=== PATIENT | female | born 1985 | race African-American/Black ===

== ENCOUNTER 2020-07-30 04:23 | Observation (INO) | payer BC ==
[~2020-07-30] VITALS: Ht 170.2 cm; Wt 124.3 kg
[2020-07-30] MEDS ORDERED: PNV1TABL76 PO (05:11)
[2020-07-30] MEDS ORDERED: ASPI-1497 PO (05:11)
[2020-07-30] MEDS ORDERED: FOLI-43 PO (05:11)
[2020-07-30] MEDS ORDERED: PYRI100T10 PO (05:11)
[2020-07-30 06:25] LABS: CLARITY URINE CLEAR (CLEAR); COLOR URINE YELLOW (YELLOW); KETONES URINE NEGATIVE (NEGATIVE); LEUKOCYTE ESTERASE URINE NEGATIVE (NEGATIVE); NITRITE URINE NEGATIVE (NEGATIVE); OCCULT BLOOD URINE NEGATIVE (NEGATIVE); PROTEIN URINE NEGATIVE (NEGATIVE); SPECIFIC GRAVITY URINE 1.018 (1.005-1.030); UROBILINOGEN URINE 0.2 E.U./dL (0.2-1.0)
[2020-07-30 06:28] LABS: BASOPHILS % 0.3 % (0.0-2.0); EOSINOPHILS % 1.3 % (0.0-5.0); HEMATOCRIT. 33.3 % (36.0-48.0); LYMPHOCYTES % 39.5 % (20.0-50.0); MEAN CORPUSCULAR HEMOGLOBIN 29.5 pg (28.0-32.0); MEAN CORPUSCULAR VOLUME 89.2 fL (81.0-99.0); MEAN PLATELET VOLUME 8.2 fl (7.4-10.4); MONOCYTES % 5.3 % (2.0-8.0); NEUTROPHILS % 53.6 % (40.0-76.0); PLATELET 277 x1000/uL (130-400); RED BLOOD CELL COUNT 3.73 mill/uL (4.2-5.4); RED CELL DISTRIBUTION WIDTH 12.9 % (11.6-14.6)
[2020-07-30 06:33] LABS: CHLORIDE 108 mEq/L (98-107)
[2020-07-30 06:36] LABS: D-DIMER 0.76 mg/L FEU (<0.50); PROTHROMBIN TIME 10.5 sec (9.6-11.0)
== END 2020-07-30 07:15 | disposition home or self-care (01) ==
LOC: 8 EST LDRP 04:23
PROVIDERS: ADMIT Specialist; ATTEND Specialist
DX: O13.3 Gestational [pregnancy-induced] hypertension without significant proteinuria, third trimester (principal); Z3A.29 29 weeks gestation of pregnancy
CPT/HCPCS: 36415; 59025; 80053; 81003; 84550; 85025; 85379; 85384; 85610; 85730; G0378; 99281

== ENCOUNTER 2020-09-14 12:17 | Observation (INO) | payer BC ==
[~2020-09-14] VITALS: Ht 172.7 cm; Wt 122.5 kg
[~2020-09-14 12:17] MED LIST: ASPI-1497 PO; FOLI-43 PO; PNV1TABL76 PO; PYRI100T10 PO
[2020-09-14 13:37] LABS: CLARITY URINE CLOUDY (CLEAR); COLOR URINE DARK YELLOW (YELLOW); KETONES URINE TRACE (NEGATIVE); LEUKOCYTE ESTERASE URINE 2+ (NEGATIVE); NITRITE URINE NEGATIVE (NEGATIVE); OCCULT BLOOD URINE NEGATIVE (NEGATIVE); PH URINE 6.5 (4.5-8.0); PROTEIN URINE 1+ (NEGATIVE); SPECIFIC GRAVITY URINE 1.027 (1.005-1.030)
[2020-09-14] MEDS ORDERED: DEXT 5%/LACTATED RINGERS 1,000 ML IV SCH (14:45)
== END 2020-09-14 14:55 | disposition home or self-care (01) ==
LOC: 8 EST LDRP 12:17
PROVIDERS: ADMIT Obstetrics & Gynecology; ATTEND Obstetrics & Gynecology
DX: O26.893 Other specified pregnancy related conditions, third trimester (principal); R10.9 Unspecified abdominal pain; Z3A.35 35 weeks gestation of pregnancy
CPT/HCPCS: 59025; 76805; 76818; 81003; G0378; 99281; A4315

== ENCOUNTER 2020-10-13 18:46 | Observation (INO) | payer BC ==
[~2020-10-13] VITALS: Ht 172.7 cm; Wt 127.0 kg
[2020-10-13] MEDS ORDERED: ACETAMINOPHEN 500MG TABLET PO NR (21:00)
[2020-10-13] MEDS ORDERED: ACETAMINOPHEN 325MG TABLET PO NR (21:00)
[2020-10-13 21:28] LABS: BASOPHILS % 0.2 % (0.0-2.0); HEMATOCRIT. 34.6 % (36.0-48.0); HEMOGLOBIN. 11.4 g/dL (12.0-16.0); LYMPHOCYTES % 32.3 % (20.0-50.0); MEAN CORPUSCULAR HEMOGLOBIN 29.1 pg (28.0-32.0); MEAN CORPUSCULAR VOLUME 88.3 fL (81.0-99.0); MEAN PLATELET VOLUME 8.3 fl (7.4-10.4); MONOCYTES % 6.7 % (2.0-8.0); NEUTROPHILS % 59.8 % (40.0-76.0); PLATELET 258 x1000/uL (130-400); RED BLOOD CELL COUNT 3.92 mill/uL (4.2-5.4); RED CELL DISTRIBUTION WIDTH 14.6 % (11.6-14.6)
[2020-10-13 21:31] LABS: CLARITY URINE CLOUDY (CLEAR); COLOR URINE YELLOW (YELLOW); KETONES URINE TRACE (NEGATIVE); LEUKOCYTE ESTERASE URINE 1+ (NEGATIVE); NITRITE URINE NEGATIVE (NEGATIVE); OCCULT BLOOD URINE NEGATIVE (NEGATIVE); PROTEIN URINE TRACE (NEGATIVE); SPECIFIC GRAVITY URINE 1.024 (1.005-1.030)
[2020-10-13 21:34] LABS: CHLORIDE 106 mEq/L (98-107)
[2020-10-13 21:41] LABS: D-DIMER 1.25 mg/L FEU (<0.50); PROTHROMBIN TIME 10.6 sec (9.6-11.0)
== END 2020-10-13 23:45 | disposition home or self-care (01) ==
LOC: 8 EST LDRP 18:46
PROVIDERS: ADMIT Obstetrics & Gynecology; ATTEND Obstetrics & Gynecology
DX: O26.893 Other specified pregnancy related conditions, third trimester (principal); R10.9 Unspecified abdominal pain; O13.3 Gestational [pregnancy-induced] hypertension without significant proteinuria, third trimester; Z3A.39 39 weeks gestation of pregnancy
CPT/HCPCS: 36415; 59025; 76815; 76818; 80053; 81003; 84550; 85025; 85379; 85384; 85610; 85730; G0378

== ENCOUNTER 2020-10-14 11:48 | Inpatient (IN) | payer BC ==
[~2020-10-14] VITALS: Ht 172.7 cm; Wt 128.8 kg
[~2020-10-14 11:48] MED LIST changes: -ASPI-1497 PO; +CARBOPROST TROMETHAMINE 250 MCG/ML AMPUL IM ONE
[2020-10-14] MEDS ORDERED: ACETAMINOPHEN 500MG TABLET PO NR (12:30)
[2020-10-14] MEDS ORDERED: CARBOPROST TROMETHAMINE 250 MCG/ML AMPUL IM PRN (13:00)
[2020-10-14] MEDS ORDERED: DEXT 5%/LR + PITOCIN 20UNITS/L 1,000 ML IV SCH (13:00)
[2020-10-14] MEDS ORDERED: NALOXONE HCL 0.4 MG/ML 1ML VIAL IM PRN (13:00)
[2020-10-14] MEDS ORDERED: BUTORPHANOL TARTRATE 2 MG/ML VIAL IV PRN (13:00)
[2020-10-14] MEDS ORDERED: LIDOCAINE HCL 1% 20ML VIAL (Pyxis) INJ INFIL NR (13:00)
[2020-10-14] MEDS ORDERED: METHYLERGONOVINE MALEATE 0.2 MG/ML IM PRN (13:00)
[2020-10-14] MEDS ORDERED: MISOPROSTOL 100MCG TABLET VG SCH (13:30)
[2020-10-14 13:32] LABS: CLARITY URINE CLEAR (CLEAR); COLOR URINE YELLOW (YELLOW); KETONES URINE NEGATIVE (NEGATIVE); LEUKOCYTE ESTERASE URINE TRACE (NEGATIVE); NITRITE URINE NEGATIVE (NEGATIVE); OCCULT BLOOD URINE NEGATIVE (NEGATIVE); PROTEIN URINE NEGATIVE (NEGATIVE); SPECIFIC GRAVITY URINE 1.016 (1.005-1.030); UROBILINOGEN URINE 0.2 E.U./dL (0.2-1.0)
[2020-10-14 13:44] LABS: *AMPHETAMINES SCREEN URINE NEGATIVE (NEGATIVE); *BARBITURATES SCREEN URINE NEGATIVE (NEGATIVE); *BENZODIAZEPINES SCREEN URINE NEGATIVE (NEGATIVE); *COCAINE SCREEN URINE NEGATIVE (NEGATIVE)
[2020-10-14 13:45] LABS: CANNABINOID URINE SCREEN NEGATIVE (NEGATIVE); METHADONE URINE SCREEN NEGATIVE (NEGATIVE); OPIATES URINE SCREEN NEGATIVE (NEGATIVE); PHENCYCLIDINE URINE SCREEN NEGATIVE (NEGATIVE)
[2020-10-14] MEDS: LACTATED RINGERS 1,000 ML IV SCH ×2 (14:27→15:06)
[2020-10-14 14:42] LABS: BASOPHILS % 0.3 % (0.0-2.0); EOSINOPHILS % 1.1 % (0.0-5.0); HEMATOCRIT. 36.3 % (36.0-48.0); HEMOGLOBIN. 12.1 g/dL (12.0-16.0); LYMPHOCYTES % 30.7 % (20.0-50.0); MEAN CORPUSCULAR HEMOGLOBIN 29.4 pg (28.0-32.0); MEAN CORPUSCULAR VOLUME 87.7 fL (81.0-99.0); MEAN PLATELET VOLUME 8.3 fl (7.4-10.4); MONOCYTES % 7.5 % (2.0-8.0); NEUTROPHILS % 60.4 % (40.0-76.0); PLATELET 267 x1000/uL (130-400); RED BLOOD CELL COUNT 4.13 mill/uL (4.2-5.4); RED CELL DISTRIBUTION WIDTH 14.6 % (11.6-14.6)
[2020-10-14 14:49] LABS: CHLORIDE 106 mEq/L (98-107)
[2020-10-14 14:56] LABS: PARTIAL THROMBOPLASTIN TIME 27.5 sec (23.4-31.0); PROTHROMBIN TIME 10.4 sec (9.6-11.0)
[2020-10-14] MEDS ORDERED: TERBUTALINE SULFATE 1MG/ML VIAL SUBCUT PRN (15:00)
[2020-10-14] MEDS ORDERED: TERBUTALINE SULFATE 1MG/ML VIAL ONE (15:07)
[2020-10-14] MEDS ORDERED: CITRIC ACID/SODIUM CITRATE SOLN 30ML UDC PO NR (15:30)
[2020-10-14 15:41] LABS: HEPATITIS B SURFACE ANTIGEN NEGATIVE
[2020-10-14] MEDS ORDERED: PROPOFOL 200MG/20ML VIAL IV ONE (15:46)
[2020-10-14] MEDS ORDERED: CEFAZOLIN SODIUM 1000MG/VIAL ONE (15:46)
[2020-10-14] MEDS ORDERED: EPHEDRINE SULFATE 50MG/ML VIAL ONE ×2 (15:46→15:50)
[2020-10-14] MEDS ORDERED: OXYTOCIN 10 UNITS/ML 1ML ONE (15:46)
[2020-10-14] MEDS ORDERED: PHENYLEPHRINE HCL 10 MG/ML 1ML (IV VIAL) IV ONE (15:50)
[2020-10-14] MEDS ORDERED: MORPHINE SULFATE/PF 1MG/ML 10ML AMP ONE (15:50)
[2020-10-14] MEDS ORDERED: SODIUM CHLORIDE 0.9% 10ML VIAL ONE (15:51)
[2020-10-14] MEDS ORDERED: GLYCOPYRROLATE 0.2 MG/ML 2ML VIAL ONE (15:55)
[2020-10-14] MEDS ORDERED: METOCLOPRAMIDE HCL 10MG/2ML VIAL ONE (16:41)
[2020-10-14] MEDS ORDERED: ONDANSETRON HCL 4MG/2ML INJ ONE (16:41)
[2020-10-14] MEDS ORDERED: BISACODYL 10MG SUPP PR PRN (17:30)
[2020-10-14] MEDS ORDERED: IBUPROFEN 400MG TABLET PO PRN (17:30)
[2020-10-14] MEDS ORDERED: RHO(D) IMMUNE GLOBULIN 300 MCG/SYR IM PRN (17:30)
[2020-10-14 18:40] VITALS: BP 116/69
[2020-10-14 19:30] VITALS: BP 102/46
[2020-10-14] MEDS: KETOROLAC 30MG/ML VIAL IV PRN (20:45)
[2020-10-14] MEDS: DEXT 5%/LR + PITOCIN 20UNITS/L 1,000 ML IV SCH (22:14)
[2020-10-15] VITALS: BP 121/65
[2020-10-15] MEDS: KETOROLAC 30MG/ML VIAL IV PRN (03:03)
[2020-10-15 04:00] VITALS: BP 121/55
[2020-10-15 07:06] LABS: BASOPHILS % 0.1 % (0.0-2.0); EOSINOPHILS % 0.6 % (0.0-5.0); HEMATOCRIT. 30.7 % (36.0-48.0); HEMOGLOBIN. 10.3 g/dL (12.0-16.0); LYMPHOCYTES % 19.3 % (20.0-50.0); MEAN CORPUSCULAR HEMOGLOBIN 29.6 pg (28.0-32.0); MEAN CORPUSCULAR VOLUME 88.5 fL (81.0-99.0); MEAN PLATELET VOLUME 8.2 fl (7.4-10.4); MONOCYTES % 6.4 % (2.0-8.0); NEUTROPHILS % 73.6 % (40.0-76.0); PLATELET 218 x1000/uL (130-400); RED BLOOD CELL COUNT 3.47 mill/uL (4.2-5.4); RED CELL DISTRIBUTION WIDTH 14.5 % (11.6-14.6)
[2020-10-15] MEDS: DEXT 5%/LR + PITOCIN 20UNITS/L 1,000 ML IV SCH (07:09)
[2020-10-15 08:00] VITALS: BP 138/71
[2020-10-15] MEDS: IBUPROFEN 800MG TABLET PO PRN (10:08)
[2020-10-15] MEDS: HYDROCODONE/ACETAMINOPHEN 5/325MG TABLET PO PRN ×2 (11:33→19:34)
[2020-10-15 16:00] VITALS: BP 100/61
[2020-10-15 19:45] VITALS: BP 126/69
[2020-10-15] MEDS ORDERED: PSEUDOEPHEDRINE HCL 30MG TABLET PO PRN (20:15)
[2020-10-15] MEDS ORDERED: KETOROLAC 60MG/2ML VIAL IM NR (20:15)
[2020-10-16 03:30] VITALS: BP 120/59
[2020-10-16] MEDS ORDERED: FERR325T6 MT (04:12)
[2020-10-16] MEDS ORDERED: IBUP-2030 PO (04:12)
[2020-10-16] MEDS: HYDROCODONE/ACETAMINOPHEN 5/325MG TABLET PO PRN (04:55)
[2020-10-16] MEDS: IBUPROFEN 800MG TABLET PO PRN (07:51)
[2020-10-16 08:00] VITALS: BP 115/57
== END 2020-10-16 12:30 | disposition home or self-care (01) | DRG 788 ==
LOC: OBSVTOIN 11:48 → 8 EST LDRP 11:48 → 8EST 18:41
PROVIDERS: ADMIT Obstetrics & Gynecology; ATTEND Obstetrics & Gynecology
PROC: 10D00Z1 Extraction of Products of Conception, Low, Open Approach (ICD-10-PCS; principal; 2020-10-14)
DX: O36.63X0 Maternal care for excessive fetal growth, third trimester, not applicable or unspecified (principal); O76 Abnormality in fetal heart rate and rhythm complicating labor and delivery; Z3A.39 39 weeks gestation of pregnancy; Z37.0 Single live birth; Z82.49 Family history of ischemic heart disease and other diseases of the circulatory system
CPT/HCPCS: 36415; 76805; 80053; 80305; 81003; 84550; 85025; 85384; 86592; 86703; 86762; 86850; 86900; 86920; 87340; 88307; 99281; J0595; J0690; J1885; J2274; J2370; J2405; J2590; J2704; J2765; J3105; J3490; J7120; A4315

== ENCOUNTER → 2021-08-29 | Outpatient (CLI) | payer BC ==
[~2021-08-29] MED LIST changes: -CARBOPROST TROMETHAMINE 250 MCG/ML AMPUL IM ONE; +FERR325T6 MT; -FOLI-43 PO; +IBUP-2030 PO; -PYRI100T10 PO
[2021-08-29 10:26] LABS: BASOPHILS % 0.5 % (0.0-2.0); EOSINOPHILS % 0.8 % (0.0-5.0); HEMATOCRIT. 36.3 % (36.0-48.0); LYMPHOCYTES % 44.9 % (20.0-50.0); MEAN CORPUSCULAR HEMOGLOBIN 27.2 pg (28.0-32.0); MEAN CORPUSCULAR VOLUME 82.1 fL (81.0-99.0); MEAN PLATELET VOLUME 7.9 fl (7.4-10.4); MONOCYTES % 6.5 % (2.0-8.0); NEUTROPHILS % 47.3 % (40.0-76.0); PLATELET 275 x1000/uL (130-400); RED BLOOD CELL COUNT 4.42 mill/uL (4.2-5.4); RED CELL DISTRIBUTION WIDTH 16.1 % (11.6-14.6)
[2021-08-29 10:40] LABS: CHLORIDE 108 mEq/L (98-107)
[2021-08-29 10:47] LABS: LDL CHOLESTEROL 96 mg/dL (5-100)
[2021-08-29 10:48] LABS: HDL CHOLESTEROL 54 mg/dL (40-59)
== END | disposition home or self-care (01) ==
LOC: LAB 09:48
PROVIDERS: ATTEND Family Medicine
DX: Z00.00 Encounter for general adult medical examination without abnormal findings (principal)
CPT/HCPCS: 36415; 80053; 80061; 82652; 84443; 85025

== ENCOUNTER → 2024-07-15 | Outpatient (CLI) | payer BC ==
[2024-07-15 16:15] LABS: ALANINE AMINOTRANSFERASE 11 IU/L (10-49); ALBUMIN 4.2 g/dL (3.2-4.8); ASPARTATE AMINOTRANSFERASE 14 IU/L (<34); BILIRUBIN TOTAL 0.2 mg/dL (0.1-1.0)
[2024-07-15 16:16] LABS: PROTEIN TOTAL 7.1 g/dL (6.0-8.3)
[2024-07-15 16:17] LABS: BILIRUBIN DIRECT < 0.1 mg/dL (<=3.0)
== END | disposition home or self-care (01) ==
LOC: LAB 15:26
PROVIDERS: ATTEND Podiatrist Foot & Ankle Surgery
DX: B35.1 Tinea unguium (principal)
CPT/HCPCS: 36415; 80076